=== PATIENT | female | born 1945 | race Caucasian/White ===

== ENCOUNTER 2017-02-10 08:39 | Day surgery (SDC) | payer OTHER ==
[~2017-02-10] VITALS: Ht 162.6 cm; Wt 85.0 kg
[~2017-02-10 08:39] MED LIST: ATOR40TA49 PO; CYMB60CA PO; LEVO50TA4 PO; LORTA5 PO; RANI150T PO; TAB-TAB PO
[2017-02-10] MEDS ORDERED: SODIUM CHLORIDE 2 ML FLUSH PRN IV FLUSH (09:15)
[2017-02-10] MEDS ORDERED: LEVO100T5 PO (09:27)
[2017-02-10] MEDS ORDERED: MULT-65 PO (09:27)
[2017-02-10] MEDS ORDERED: ATOR40TA16 PO (09:27)
[2017-02-10] MEDS ORDERED: RANI150C PO (09:27)
[2017-02-10] MEDS ORDERED: TRAM50TA PO (09:27)
[2017-02-10] MEDS ORDERED: LORA-373 PO (09:27)
[2017-02-10] MEDS ORDERED: LITH300C2 PO (09:27)
[2017-02-10] MEDS ORDERED: LOPE-1 PO (09:27)
[2017-02-10] MEDS ORDERED: GUAI400T8 PO (09:27)
[2017-02-10] MEDS ORDERED: CLAR10CA3 PO (09:27)
[2017-02-10] MEDS ORDERED: SODIUM CHLOR 0.9% 1000 ML IV SCH (10:00)
[2017-02-10] MEDS ORDERED: LIDOCAINE HCL 1% 20 ML VIAL ONE (10:36)
[2017-02-10] MEDS ORDERED: fentaNYL CITRATE 250 MCG/5 ML AMP ONE (10:59)
[2017-02-10] MEDS ORDERED: MIDAZOLAM HCL 2 MG/2 ML VIAL ONE ×2 (11:00→11:01)
[2017-02-10 11:02] LABS: AUTOMATED NEUTROPHIL # 13.9 TH/MM3 (1.8-7.7); BASOPHIL # 0.1 TH/MM3 (0-0.2); BASOPHIL % 0.5 % (0.0-2.0); EOSINOPHIL # 0.2 TH/MM3 (0-0.4); EOSINOPHIL % 1.1 % (0.0-4.0); LYMPH % 13.4 % (9.0-44.0); LYMPHOCYTE # 2.4 TH/MM3 (1.0-4.8); MEAN CELL VOLUME 93.5 FL (80.0-100.0); MEAN CORPUSCULAR HEMOGLOBIN 29.3 PG (27.0-34.0); MEAN CORPUSCULAR HGB CONC 31.3 % (32.0-36.0); MONO % 6.4 % (0.0-8.0); NEUT % 78.6 % (16.0-70.0); PLATELET COUNT 274 TH/MM3 (150-450); RED CELL DISTRIBUTION WIDTH 14.3 % (11.6-17.2); WHITE BLOOD COUNT 17.7 TH/MM3 (4.0-11.0)
[2017-02-10 11:03] LABS: HEMO FLAGS AUTO DIFF
[2017-02-10] MEDS ORDERED: BUPIVACAINE HCL PF 0.75% 30 ML VIAL ONE (11:26)
[2017-02-10 11:48] LABS: SCAN/DIFF AUTO DIFF CONFIRMED
[2017-02-10 11:50] VITALS: BP 141/69; PULSE 91; RESP 18; O2SAT 94
[2017-02-10 12:05] VITALS: BP 121/91; PULSE 87; RESP 18; O2SAT 93
[2017-02-10 12:09] LABS: BONE MARROW PROCESSING COMPLETE; IRON STAIN DONE; JENNER GIEMSA STAIN DONE
--- NOTE | 2017-02-10 12:10 | RADRPT ---
EXAM DATE/TIME: 02/10/2017 11:16 [place] COMPARISON: No previous studies available for comparison. INDICATIONS : Leukocytosis; monocytosis. SEDATION TIME: 30 minutes BIOPSY SITE: Right iliac MEDICATION(S): 1.) 4 mg midazolam (Versed) IV 2.) 250 mcg fentanyl (Sublimaze) IV DEVICE(S): 1.) 11 gauge Bone marrow biopsy needle MEDICAL HISTORY : None. SURGICAL HISTORY : None. ENCOUNTER: Initial ACUITY: 1 day PAIN SCORE: 0/10 LOCATION: Right iliac A total of two core specimen(s) were obtained and sent to the laboratory for pathologic evaluation. PROCEDURE: 1. CT guided bone marrow biopsy. 2. Conscious sedation with continuous EKG and oximetry monitoring. 3. EKG and oximetry remained stable throughout the procedure. Prior to the procedure informed consent was obtained. Any appropriate prior imaging studies were rev iewed. Using automated exposure control and adjustment of the mA and/or kV according to patient size , radiation dose was kept as low as reasonably achievable to obtain optimal diagnostic quality images . DICOM format image data is available electronically for review and comparison. The site was prepped in a sterile fashion. Full sterile technique was used, including cap, mask, rosa mraia rile gloves and gown and a large sterile sheet. Hand hygiene and 2% chlorhexidine and/or betadine/al cohol prep was utilized per protocol for cutaneous antisepsis. The skin and subcutaneous tissues wer e infiltrated with local anesthetic solution. With CT guidance the previously identified target was localized. Biopsy was performed using the presc ribed needle as above. Following biopsy marrow aspiration was performed with repeat puncture. Adequa te hemostasis was obtained with compression at the puncture site. Follow-up CT scan reveals no hemorrhage. Conscious sedation was performed with the prescribed dosages and duration as above in the presence of an independent trained radiology nurse to assist in the monitoring of the patient. EKG and oximetry remained stable throughout the procedure. The patient tolerated the procedure well and there were no complications. The patient was sent to Radiology Outpatient Unit in stable condition. CONCLUSION: 1. Uncomplicated CT guided bone marrow aspirate. 2. Uncomplicated CT guided bone marrow biopsy. Dhruv Ordonez MD FACR on February 10, 2017 at 12:08 Board Certified Radiologist. This report was verified electronically.
[2017-02-10 12:25] VITALS: BP 131/70; PULSE 84; RESP 16; O2SAT 84
[2017-02-10 13:05] VITALS: BP 125/68; PULSE 86; RESP 16; O2SAT 95
[2017-02-10 13:35] VITALS: BP 129/85; PULSE 95; RESP 16; O2SAT 98
[2017-02-10] MEDS ORDERED: SODIUM CHLORIDE 2 ML FLUSH BID IV FLUSH SCH (21:00)
== END 2017-02-10 14:30 | disposition home or self-care (01) ==
LOC: HRAD 08:39 → HRIP 08:40 → HRAD 14:30
PROVIDERS: ATTEND Internal Medicine
DX: D72.829 Elevated white blood cell count, unspecified (principal); D72.821 Monocytosis (symptomatic); D72.0 Genetic anomalies of leukocytes
CPT/HCPCS: 38221; 77012; 85025; 85097; 88184; 88185; 88237; 88264; 88280; 88305; 88311; 88313; 99152; C1830; J2250; J3010